=== PATIENT | female | born 1985 | race Caucasian/White ===

== ENCOUNTER 2020-03-02 08:33 | Inpatient (IN) ==
[2020-03-02] MEDS ORDERED: 0.9 % SODIUM CHLORIDE 1,000 ML IV ONE ×2 (09:35→12:58)
--- NOTE | 2020-03-02 09:53 | XRay Report ---
INDICATION: Chest Pain TECHNIQUE: AP portable upright chest x-ray COMPARISON: Previous chest x-ray dated 04/25/2018 FINDINGS: Lungs:Lungs are negative. No focal pulmonary parenchymal infiltrate or mass Heart, vascular:No significant cardiomegaly. Pulmonary vascularity is normal. No pulmonary edema or pulmonary congestion Mediastinum, lashawn:No mediastinal widening. No hilar mass Pleura:No pleural fluid. No pleural-based mass or calcification Skeletal:Negative. IMPRESSION: 1. Negative AP chest x-ray 2. No interval change since 04/25/2018 Interpreted and Authenticated by: Rashid Cardoso 03/02/20
[2020-03-02] MEDS ORDERED: ONDANSETRON 4 MG/2 ML VIAL IV ONE (10:12)
--- NOTE | 2020-03-02 10:21 | Emergency Department Note ---
Chest Pain HPI General Chief Complaint: Chest Pain Stated Complaint: Chest, arm, neck pain after drinking water Time Seen by Provider: 03/02/20 09:25 Source: patient Mode of arrival: ambulatory Limitations: no limitations History of Present Illness HPI Narrative: Narrative: This pleasant 34-year-old female comes to the emergency room with onset around 4:30 AM of getting up to drink some water and then it seemed to go down "the wrong tube" and she choked and coughed significantly. She went back to bed and an hour later woke up feeling quite weird and weak with chest discomfort and a sore throat. There is no dysphagia. Her chest discomfort includes pain somewhat between her shoulder blades in her back. She worried about aspiration. Chest pain she rates at 8/10. She does feel little bit short of breath but this was not observed in triage. She is quite thirsty. She did have a diet Pepsi around 6:30 AM. She also smoked before coming in. She denies fevers, chills, sweats, runny nose, nasal congestion, current cough or dysuria or diarrhea. She does feel lightheaded and this has been going on while trying to ambulate or walk. She has had DKA before, is a type I diabetic. She has not had her insulin today. She has not had an A1c for quite a long period of time. Related Data Home Medications Medication Instructions Recorded Confirmed insulin aspart U-100 [Novolog] 100 unit SQ 07/30/17 insulin glargine [Basaglar Kwikpen 100 unit SQ 07/30/17 U-100] Tamiflu 04/25/18 Allergies Allergy/AdvReac Type Severity Reaction Status Date / Time No Known Drug Allergies Allergy Verified 07/30/17 00:29 Review of Systems ROS ROS Narrative: Narrative: Denies fever chills sweats No runny nose or cough or wheezing but feels short of breath No abdominal pain, nausea, vomiting No dysuria No back pain except some between her shoulder blades she associates with above Lightheaded and dizzy with walking. PFS Narrative Patient History Narrative: Narrative: No asthma, DVT, PE, pneumonia Medical/Surgical/Family History All Active Problems (Updated 03/02/20 @ 14:35 by Silver Marquez DO) Cigarette smoker (Acute) History of tubal ligation (Acute) History of diabetes with ketoacidosis (Acute) Diabetes mellitus type 1 (Acute) DKA (diabetic ketoacidoses) (Acute) Chest pain, unspecified (Acute) Elevated WBC count (Acute) Medical History (Updated 03/02/20 @ 14:35 by Silver Marquez DO) Carbuncle and furuncle of buttock (Inactive) Cigarette smoker (Acute) Diabetes mellitus type 1 (Acute) History of diabetes with ketoacidosis (Acute) Influenza (Inactive) Surgical History (Updated 03/02/20 @ 14:35 by Silver Marquez DO) History of tubal ligation (Acute) Social History Smoking Status: Current every day smoker Alcohol Intake Frequency: does not drink Substance Use: does not use Exam Narrative Narrative: Narrative: General Limitations: no limitations General appearance: Present alert, in no apparent distress, malaise (Moderate) and nontoxic Head Head: Present atraumatic and normocephalic Eye Eye: Present normal appearance, PERRL and EOMI ENT ENT: Present normal oropharynx and mucous membranes moist Neck Neck: Present trachea midline; Absent lymphadenopathy and thyromegaly Chest Chest: Present symmetric chest wall rise Respiratory Respiratory: Present normal lung sounds bilaterally; Absent respiratory distress, rales/crackles, wheezes, stridor, accessory muscle use and prolonged expiratory phase Cardiovascular Cardiovascular: Present regular rate and normal rhythm; Absent systolic murmur and diastolic murmur Adbominal Abdominal: Present soft; Absent distention, tenderness, guarding, rebound, rigidity, organomegaly and mass Extremities Extremities: Present normal capillary refill; Absent pedal edema, pretibial edema, calf tenderness and cyanosis Back Back: Absent CVA tenderness (R), CVA tenderness (L) and spinous process tenderness Neurological Neurological: Present alert and oriented X3 Psychiatric Psychiatric: Present normal affect, polite and pleasant; Absent depressed, agitated, anxious and poor eye contact Skin Skin: Present warm (WNL) and dry; Absent cyanosis and pallor Course Vital Signs Vital signs: Vital Signs Temperature 98.1 F 03/02/20 08:37 Pulse Rate 138 H 03/02/20 08:37 Respiratory Rate 18 03/02/20 08:37 Blood Pressure 106/63 03/02/20 08:37 Pulse Oximetry (%) 100 03/02/20 08:37 Temperature 98.1 F 10/23/20 08:37 Pulse Rate 124 H 03/02/20 14:01 Respiratory Rate 20 03/02/20 14:01 Blood Pressure 98/53 03/02/20 14:01 Pulse Oximetry (%) 98 03/02/20 14:01 MDM MDM Narrative Medical decision making narrative: Narrative: 9:25 AM - interviewed and examined. Chest discomfort. Moderate malaise general appearance. With her type I diabetic we will do multiple labs. Chest x-ray. 10:20 AM - chest x-ray quite unremarkable per radiologist report. At 1 point patient was ready to leave, wanting to leave. I reported back to her that there was a significant delay in an important lab and that she needed to stay that I could not agree with her leaving until this came back. Labs were quite delayed in coming back. CMP comes back with a significantly elevated anion gap at 28 and a suppressed bicarb. We will do ABG. Patient is agreeable to stay in the hospital with likelihood of DKA and for best outcome and improvement. ABG demonstrates significant metabolic acidosis with a pH of 7.16, PCO2 of 19, base excess -19.8 and a bicarb low at 6.8. This is on room air. 2:40 PM - spoke with Dr. Pardeep Lipscomb, hospitalist, who will come and see patient and admit this patient. Pending are repeat, recently ordered, POC Chem- 8, magnesium, lactic acid/RT. insulin drip requested. At 0.1 units/kg/h would be a little over 6 units. Patient's blood sugars have already come down quite significantly with 5 units given twice over several hours. We will start her at 4 units/kg/h. 2:45 PM - Dr. Meng is here to see patient. Lab Data Result diagrams: 03/02/20 09:51 03/02/20 09:51 Labs: Lab Results 03/02/20 03/02/20 03/02/20 Range/Units 09:51 09:51 09:51 WBC 14.1 H (4.5-11.0) K/mcL RBC 5.14 (4.00-5.20) M/mcL Hgb 14.8 (12.0-15.0) g/dL Hct 45.6 (36.0-48.0) % MCV 88.7 (80.0-100.0) fL MCH 28.8 (26.0-34.0) pg MCHC 32.5 (31.0-36.0) g/dL RDW 12.6 (11.5-14.5) % Plt Count 319 (140-440) K/mcL MPV 12.3 H (7.4-10.4) fL Neut % (Auto) 89.2 H (38.0-78.0) % Lymph % (Auto) 7.3 L (15.0-49.0) % [place] % (Auto) 2.6 (1.0-12.0) % Eos % (Auto) 0.1 (0.0-7.0) % Baso % (Auto) 0.8 (0.0-2.0) % Lymph # (Auto) 1.03 L (1.50-4.80) K/mcL [place] # (Auto) 0.37 (0.10-0.90) K/mcL Eos # (Auto) 0.02 (0.00-0.70) K/mcL Baso # (Auto) 0.11 (0.00-0.20) K/mcL Absolute Neutrophils 12.58 H (1.80-8.00) K/mcL Sodium 126 L (133-145) mmol/L Potassium 4.9 (3.3-5.1) mmol/L Chloride 86 L (96-108) mmol/L Carbon Dioxide 12 L (22-30) mmol/L Anion Gap 28.0 H (8.0-16.0) BUN 19 (6-20) mg/dL Creatinine 0.9 (0.6-1.1) mg/dL GFR Calculation 82 Glucose 563 H* (70-105) mg/dL Calcium 10.2 (8.6-10.4) mg/dL Total Bilirubin 0.6 (0.1-1.0) mg/dL AST 14 (<32) U/L ALT 10 (<40) U/L Alkaline Phosphatase 104 (39-117) U/L Troponin T < 0.01 (<0.03) ng/mL Total Protein 8.2 (5.9-8.4) gm/dL Albumin 4.5 (3.2-5.2) gm/dL Globulin 3.7 (2.2-3.7) gm/dL Albumin/Globulin Ratio 1.2 (1.0-2.3) Lipase 16 (7-60) U/L Discharge Plan Patient/Caregiver Discharge Instructions Pt seen by SENIOR MAINTENANCE TECHNICIAN/PA only: No Clinical Impression: DKA (diabetic ketoacidoses) Qualifiers: Diabetes mellitus type: type 1 Diabetes mellitus complication detail: without coma Qualified Code(s): E10.10 - Type 1 diabetes mellitus with ketoacidosis without coma Chest pain, unspecified Qualifiers: Chest pain type: other chest pain Qualified Code(s): R07.89 - Other chest pain Elevated WBC count Qualifiers: Leukocytosis type: unspecified Qualified Code(s): D72.829 - Elevated white blood cell count, unspecified Patient Disposition: Xfer As Inpt ([facility]) Follow up with: Gracia Rivera ARNP [Primary Care Provider] - Prescriptions: No Action insulin aspart U-100 [Novolog U-100 Insulin aspart] 100 UNIT/ML Vial 100 unit SQ RF: 0 insulin glargine [Basaglar KwikPen U-100 Insulin] 100 UNIT/ML Insuln.Pen 100 unit SQ RF: 0 Tamiflu RF: 0
[2020-03-02 11:22] LABS: Basophils # (Auto) 0.11 K/mcL (0.00-0.20); Basophils % (Auto) 0.8 % (0.0-2.0); Eosinophils # (Auto) 0.02 K/mcL (0.00-0.70); Eosinophils % (Auto) 0.1 % (0.0-7.0); Hematocrit 45.6 % (36.0-48.0); Hemoglobin 14.8 g/dL (12.0-15.0); Lymphocytes # (Auto) 1.03 K/mcL (1.50-4.80); Lymphocytes % (Auto) 7.3 % (15.0-49.0); Mean Cell Volume 88.7 fL (80.0-100.0); Mean Corpuscular HGB Conc 32.5 g/dL (31.0-36.0); Mean Platelet Volume 12.3 fL (7.4-10.4); Monocytes # (Auto) 0.37 K/mcL (0.10-0.90); Monocytes % (Auto) 2.6 % (1.0-12.0); Neutrophils % (Auto) 89.2 % (38.0-78.0); Platelet Count 319 K/mcL (140-440); RBC 5.14 M/mcL (4.00-5.20); Red Cell Distribution Width 12.6 % (11.5-14.5); WBC 14.1 K/mcL (4.5-11.0)
[2020-03-02] MEDS ORDERED: INSULIN REGULAR, HUMAN 1 UNIT/0.01 ML UNIT IV ONE ×2 (11:44→12:58)
[2020-03-02 12:47] LABS: ALT/SGPT 10 U/L (<40); AST/SGOT 14 U/L (<32); Albumin 4.5 gm/dL (3.2-5.2); Albumin/Globulin Ratio 1.2 (1.0-2.3); Alkaline Phosphatase 104 U/L (39-117); Bilirubin,Total 0.6 mg/dL (0.1-1.0); Blood Urea Nitrogen 19 mg/dL (6-20); Calcium 10.2 mg/dL (8.6-10.4); Carbon Dioxide 12 mmol/L (22-30); Chloride 86 mmol/L (96-108); Globulin 3.7 gm/dL (2.2-3.7); Glomerular Filtration Rate 82; Glucose 563 mg/dL (70-105)
[2020-03-02] MEDS ORDERED: INSULIN REGULAR, HUMAN 50 UNIT in 0.9 % SODIUM CHLORIDE 99.5 ML IV SCH ×2 (14:45→16:00)
[2020-03-02 14:54] LABS: POC Blood Urea Nitrogen 19 mg/dL (6-20); POC CO2 10 mmol/L (22-30); POC Calcium, Ionized 1.21 mmEq/L (1.16-1.32); POC Chloride 103 mEq/L (96-108); POC Creatinine 0.3 mg/dL (0.6-1.2); POC Glucose, Random 319 mg/dL (70-105); POC Hematocrit 45 % (36-48); POC Potassium 4.1 mEql/L (3.3-5.1); POC Sodium 132 mEq/L (133-145)
--- NOTE | 2020-03-02 14:58 | Internal Med History&Physical ---
HPI History of Present Illness Patient information: Note initiated : 03/02/20 at 2:52 pm Service Date, if different from initiated Date: [] Patient: Taisha hCicas 34 y/o F admitted on for Chest, arm, neck pain after drinking water. Chief Complaint: [] History of present illness: Ms. Chicas is a 34 year old F Presents the ED feeling ill with malaise weakness that she had some generalized throat chest neck achiness. She thought she aspirated some fluid on her windpipe. But she did come in on room air unlabored breathing. States that her chest throat back pain improved after the IV fluids and insulin given in the ED. Chest x-ray was unremarkable and work-up in the ED revealed diabetic ketoacidosis. Patient started on insulin drip. Patient did have some nausea but no vomiting. Does admit to missing some of her long-acting insulin usually in the mornings and she does have some dietary indiscretions as well. Review of Systems: Pertinent positives above. Denies headache/fever/chills/vomiting/abdominal pain/cough/dyspnea/diarrhea. Remaining 10 point review of system reviewed negative PFSH PFSH All Active Problems (Updated 03/02/20 @ 14:35 by Silver Marquez DO) Cigarette smoker (Acute) History of tubal ligation (Acute) History of diabetes with ketoacidosis (Acute) Diabetes mellitus type 1 (Acute) DKA (diabetic ketoacidoses) (Acute) Chest pain, unspecified (Acute) Elevated WBC count (Acute) Medical History (Updated 03/02/20 @ 14:35 by Silver Marquez DO) Carbuncle and furuncle of buttock (Inactive) Cigarette smoker (Acute) Diabetes mellitus type 1 (Acute) History of diabetes with ketoacidosis (Acute) Influenza (Inactive) Surgical History (Updated 03/02/20 @ 14:35 by Silver Marquez DO) History of tubal ligation (Acute) Social History (Updated 03/02/20 @ 14:55 by Pardeep Meng DO) smoking status: Current every day smoker alcohol intake frequency: does not drink substance use type: does not use additional history: Family history: Father had CAD and mother was adopted with unknown history Past surgical history: Tubal ligation MEDS/ALLERGIES Home Medications and Allergies Home Medications Medication Instructions Recorded Confirmed Type insulin aspart U-100 [Novolog] 100 unit SQ 07/30/17 History insulin glargine [Basaglar Kwikpen 100 unit SQ 07/30/17 History U-100] Tamiflu 04/25/18 History Allergies Allergy/AdvReac Type Severity Reaction Status Date / Time No Known Drug Allergies Allergy Verified 07/30/17 00:29 EXAM Constitutional Vitals: Temp Pulse Resp BP Pulse Ox 98.1 F 124 H 20 98/53 98 03/02/20 08:37 03/02/20 14:01 03/02/20 14:01 03/02/20 14:01 03/02/20 14:01 Exam: General: Alert, Awake, No acute Distress Eyes/N/T: EOMI, PERRL, dry MM Head/Neck: neck supple, normocephalic atraumatic CV: Tachycardia but regular, No murmurs, normal s1/s2 Pulm: Clear b/l, no wheezing/rhonchi/rales Abd: soft, nontender, +BS x4 Ext: no clubbing/cyanosis/edema Neuro: Alert, no focal deficits, moves all extremities, CN 2-12 grossly intact, symmetrical strength b/l upper/lower, sensations intact b/l upper/lower Skin: warm/dry DATA Data Completed and Pending Labs: Labs from last 24 hours 03/02/20 03/02/20 03/02/20 14:45 14:41 09:51 WBC RBC Hgb Hct POC Hct Pending MCV MCH MCHC RDW Plt Count MPV Neut % (Auto) Lymph % (Auto) [place] % (Auto) Eos % (Auto) Baso % (Auto) Lymph # (Auto) [place] # (Auto) Eos # (Auto) Baso # (Auto) Absolute Neutrophils POC Sodium Pending Sodium POC Potassium Pending Potassium POC Chloride Pending Chloride Carbon Dioxide POC Total CO2 Pending Anion Gap POC BUN Pending BUN Creatinine POC Creatinine Pending GFR Calculation Glucose POC Glucose Pending Calcium POC WB Ioniz Calcium Pending Magnesium Pending Total Bilirubin AST ALT Alkaline Phosphatase Troponin T < 0.01 Total Protein Albumin Globulin Albumin/Globulin Ratio Lipase Beta-Hydroxybutyrate Pending 03/02/20 03/02/20 09:51 09:51 WBC 14.1 H RBC 5.14 Hgb 14.8 Hct 45.6 POC Hct MCV 88.7 MCH 28.8 MCHC 32.5 RDW 12.6 Plt Count 319 MPV 12.3 H Neut % (Auto) 89.2 H Lymph % (Auto) 7.3 L [place] % (Auto) 2.6 Eos % (Auto) 0.1 Baso % (Auto) 0.8 Lymph # (Auto) 1.03 L [place] # (Auto) 0.37 Eos # (Auto) 0.02 Baso # (Auto) 0.11 Absolute Neutrophils 12.58 H POC Sodium Sodium 126 L POC Potassium Potassium 4.9 POC Chloride Chloride 86 L Carbon Dioxide 12 L POC Total CO2 Anion Gap 28.0 H POC BUN BUN 19 Creatinine 0.9 POC Creatinine GFR Calculation 82 Glucose 563 H* POC Glucose Calcium 10.2 POC WB Ioniz Calcium Magnesium Total Bilirubin 0.6 AST 14 ALT 10 Alkaline Phosphatase 104 Troponin T Total Protein 8.2 Albumin 4.5 Globulin 3.7 Albumin/Globulin Ratio 1.2 Lipase 16 Beta-Hydroxybutyrate A/P Narrative A/P Narrative: A: *DKA: 2/2 missed insulin dosing and dietary indiscretion *AG Met Acidosis: 2/2 above *Depression: *Tobacco abuse: * P: -Insulin drip -IV fluid -Electrolyte drinks/replacement -restart home insulin and titrate -a1c, uds, bhb -Smoking cessation counseling -ppx: Lovenox Time Spent With Patient Time: Total time spent is greater than 50% in coordination of care (as documented) at patient's floor/unit and/or counseling patient:
[2020-03-02 15:18] LABS: Amphetamine Screen,Urine None detected; Barbiturate Screen,Urine None detected; Benzodiazepines Screen,Urine None detected; Cannabinoid Screen,Urine None detected; Cocaine Screen,Urine None detected; Opiate Screen,Urine None detected; Oxycodone, Urine Screen None detected; Phencyclidine Screen,Urine None detected
[2020-03-02] MEDS ORDERED: ONDANSETRON 4 MG/2 ML VIAL IV PRN (16:00)
[2020-03-02] MEDS ORDERED: IPRATROPIUM/ALBUTEROL 3 ML AMPUL.NEB NEB PRN (16:00)
[2020-03-02] MEDS ORDERED: POTASSIUM CHLORIDE 40 MEQ in DEXTROSE 5% IN WATER 500 ML IV PRN (16:00)
[2020-03-02] MEDS ORDERED: SENNOSIDES 1 TABLET PO PRN (16:00)
[2020-03-02] MEDS ORDERED: MAGNESIUM SULFATE 2 GM/50 ML BAG IV PRN (16:00)
[2020-03-02] MEDS ORDERED: POTASSIUM CHLORIDE 20 MEQ TABLET PO PRN ×2 (16:00)
[2020-03-02] MEDS: 0.9 % SODIUM CHLORIDE 1,000 ML IV SCH ×2 (16:10→23:04)
[2020-03-02] MEDS: NICOTINE 14 MG PATCH TOPICAL SCH (16:13)
[2020-03-02 17:02] LABS: Appearance,Urine CLEAR (Clear); Bilirubin,Urine Negative (Negative); Color,Urine STRAW; Culture Indicated,Urine No; Glucose,Urine (UA) >=500 mg/dL (Negative); Ketones,Urine 80 mg/dL (Negative); Leukocyte Esterase,Urine Negative /ug (Negative); Mucus,Urine FEW /hpf; Nitrate,Urine Negative (Negative); Protein,Urine Negative (Negative); Specific Gravity,Urine 1.024 (1.000-1.035); Urine Blood 0.03 mg/dL (Negative); Urine RBC 1 /hpf (0-1); Urine Squamous Epithelial Cell 0 /hpf (0-4); Urine WBC < 1 /hpf (0-4); Urobilinogen,Urine Negative
[2020-03-02 17:31] LABS: Hemoglobin A1C 13.2 % Hgb (4.0-6.0)
[2020-03-02] MEDS: ACETAMINOPHEN 325 MG TABLET PO PRN (17:33)
[2020-03-02] MEDS ORDERED: ACETAMINOPHEN 325 MG TABLET PO ONE (17:40)
[2020-03-02] MEDS ORDERED: INSULIN REGULAR, HUMAN 1 UNIT/0.01 ML UNIT ONE ×2 (19:28→20:20)
[2020-03-02] MEDS: DOCUSATE SODIUM 100 MG CAPSULE PO SCH (21:04)
[2020-03-02] MEDS: 0.9 % SODIUM CHLORIDE 10 ML SYRINGE IV SCH (22:03)
[2020-03-02] MEDS: DEXTROSE 5%-NS 1,000 ML IV SCH (23:06)
[2020-03-03] MEDS ORDERED: DEXTROSE 50% 50 ML VIAL IV ONE (01:08)
[2020-03-03] MEDS: 0.9 % SODIUM CHLORIDE 10 ML SYRINGE IV SCH ×3 (05:04→21:10)
[2020-03-03] MEDS: 0.9 % SODIUM CHLORIDE 1,000 ML IV SCH ×3 (05:25→12:15)
[2020-03-03 05:28] LABS: Basophils # (Auto) 0.08 K/mcL (0.00-0.20); Basophils % (Auto) 0.9 % (0.0-2.0); Eosinophils # (Auto) 0.21 K/mcL (0.00-0.70); Eosinophils % (Auto) 2.3 % (0.0-7.0); Hematocrit 38.2 % (36.0-48.0); Hemoglobin 12.7 g/dL (12.0-15.0); Lymphocytes # (Auto) 2.87 K/mcL (1.50-4.80); Lymphocytes % (Auto) 31.3 % (15.0-49.0); Mean Cell Volume 86.8 fL (80.0-100.0); Mean Corpuscular HGB Conc 33.2 g/dL (31.0-36.0); Mean Platelet Volume 11.2 fL (7.4-10.4); Monocytes # (Auto) 0.81 K/mcL (0.10-0.90); Monocytes % (Auto) 8.8 % (1.0-12.0); Neutrophils % (Auto) 56.7 % (38.0-78.0); Platelet Count 295 K/mcL (140-440); Red Cell Distribution Width 12.8 % (11.5-14.5); WBC 9.2 K/mcL (4.5-11.0)
[2020-03-03] MEDS: DEXTROSE 5%-NS 1,000 ML IV SCH (05:45)
[2020-03-03 05:59] LABS: ALT/SGPT 7 U/L (<40); AST/SGOT 12 U/L (<32); Albumin 3.2 gm/dL (3.2-5.2); Albumin/Globulin Ratio 1.1 (1.0-2.3); Alkaline Phosphatase 75 U/L (39-117); Bilirubin,Direct < 0.2 mg/dL (<0.3); Bilirubin,Total 0.4 mg/dL (0.1-1.0); Blood Urea Nitrogen 13 mg/dL (6-20); Calcium 7.9 mg/dL (8.6-10.4); Carbon Dioxide 17 mmol/L (22-30); Chloride 105 mmol/L (96-108); Globulin 2.8 gm/dL (2.2-3.7); Glomerular Filtration Rate 125; Glucose 110 mg/dL (70-105); Lactate Dehydrogenase 140 U/L (135-225); Phosphorous 2.5 mg/dL (2.5-4.5); Triglycerides 89 mg/dL (<150)
[2020-03-03] MEDS: ACETAMINOPHEN 325 MG TABLET PO PRN (08:20)
[2020-03-03] MEDS ORDERED: DEXTROSE 50% 50 ML VIAL IV PRN ×2 (08:23→12:40)
[2020-03-03] MEDS ORDERED: DEXTROSE 31 GM ORAL.SUSP PO PRN ×2 (08:23→12:40)
--- NOTE | 2020-03-03 08:23 | Internal Med Progress Note ---
SUBJECTIVE Subjective Patient information: Note initiated : 03/03/20 at 8:21 am Service Date, if different from initiated Date: [] Patient: Taisha Chicas 34 y/o F admitted on 03/02/20 for Chest, arm, neck pain after drinking water. Chief Complaint: [] Interval history: History of present illness: Ms. Chicas is a 34 year old F Presents the ED feeling ill with malaise weakness that she had some generalized throat chest neck achiness. She thought she aspirated some fluid on her windpipe. But she did come in on room air unlabored breathing. States that her chest throat back pain improved after the IV fluids and insulin given in the ED. Chest x-ray was unremarkable and work-up in the ED revealed diabetic ketoacidosis. Patient started on insulin drip. Patient did have some nausea but no vomiting. Does admit to missing some of her long-acting insulin usually in the mornings and she does have some dietary indiscretions as well. 03/03 Feeling better today. Transitioning from the drip to subcu. Electrolytes and metabolic status normalizing. Review of Systems: denies headache/fever/chills/nausea/vomiting/chest or abdominal p ain/cough/dyspnea/diarrhea. Otherwise see above. Constitutional Vitals: Vital Signs Temp Pulse Resp BP Pulse Ox 98.1 F 112 H 15 96/58 100 03/02/20 16:12 03/02/20 16:12 03/03/20 04:18 03/03/20 04:01 03/03/20 04:18 Period Temp Pulse Resp BP Sys/Hill Pulse Ox Last 24 Hr 98.1 F-99.3 F 112-138 8-29 88-124/39-72 96-100 Intake and Output 03/02/20 03/03/20 03/03/20 21:59 05:59 13:59 Intake Total 1033 2075 267 Output Total 750 500 Balance 283 1575 267 Weight 66.6 kg Intake & Output: Intake & Output 03/02/20 03/03/20 03/03/20 21:59 05:59 13:59 Intake Total 1033 2075 267 Output Total 750 500 Balance 283 1575 267 Weight 66.6 kg Intake: IV 1033 5 267 Sodium Chloride 0.9% 1,000 ml @ 1000 1000 150 mls/hr IV .Q6H40M [facility] Rx#: [id number] Dextrose 5%-Ns IV Solution 1, 1000 267 000 ml @ 150 mls/hr IV .Q6H40M [facility] Rx#:[id number] HumuLIN R 50 UNIT In Sodium 33 75 0 Chloride 0.9% 99.5 ml @ 4 UNIT/ HR 8 mls/hr IV DUR [facility] Rx#: [id number] Output: Void Amount 750 500 Other: Urine Appearance Clear Clear Urine Color Blood Tinged Blood Tinged Urine Odor Normal Normal Exam: General: Alert, Awake, No acute Distress Eyes/N/T: EOMI, Head/Neck: neck supple, CV: mildly Tachycardia but regular, No murmurs, Pulm: Clear b/l, no wheezing/rhonchi/rales Abd: soft, nontender, +BS x4 Ext: no clubbing/cyanosis/edema Neuro: Alert, no focal deficits, moves all extremities, Skin: warm/dry OBJ DATA Labs CBC & Chem 7: 03/03/20 04:28 03/03/20 04:28 Labs: Abnormal Lab Results 03/03/20 03/03/20 03/03/20 04:28 04:28 04:28 WBC MPV 11.2 H Neut % (Auto) Lymph % (Auto) Lymph # (Auto) Absolute Neutrophils POC Sodium Sodium Chloride Carbon Dioxide 17 L POC Total CO2 Anion Gap Creatinine 0.5 L POC Creatinine Glucose 110 H POC Glucose Hemoglobin A1c Calcium 7.9 L Beta-Hydroxybutyrate 0.58 H Urine Glucose (UA) Urine Ketones Urine Mucus 03/02/20 03/02/20 03/02/20 16:00 14:45 14:41 WBC MPV Neut % (Auto) Lymph % (Auto) Lymph # (Auto) Absolute Neutrophils POC Sodium 132 L Sodium Chloride Carbon Dioxide POC Total CO2 10 L Anion Gap Creatinine POC Creatinine 0.3 L Glucose POC Glucose 319 H Hemoglobin A1c 13.2 H Calcium Beta-Hydroxybutyrate > 7.53 H Urine Glucose (UA) Urine Ketones Urine Mucus 03/02/20 03/02/20 03/02/20 09:51 09:51 09:40 WBC 14.1 H MPV 12.3 H Neut % (Auto) 89.2 H Lymph % (Auto) 7.3 L Lymph # (Auto) 1.03 L Absolute Neutrophils 12.58 H POC Sodium Sodium 126 L Chloride 86 L Carbon Dioxide 12 L POC Total CO2 Anion Gap 28.0 H Creatinine POC Creatinine Glucose 563 H* POC Glucose Hemoglobin A1c Calcium Beta-Hydroxybutyrate Urine Glucose (UA) >=500 A Urine Ketones 80 A Urine Mucus Few A Meds: Medications Acetaminophen (Tylenol) 650 mg PO Q6HP PRN; Protocol PRN Reason: Per Pain Protocol Albuterol/Ipratropium (Duoneb) 3 ml NEB Q4HP PRN PRN Reason: Shortness Of Breath Diagnostic Test (Pha) (Accu-Chek) 1 each FS Q1 [facility] Last Admin: 03/03/20 08:00 Dose: 1 each Documented by: Docusate Sodium (Colace) 100 mg PO BID [facility] Last Admin: 03/02/20 21:04 Dose: Not Given Documented by: Enoxaparin Sodium (Lovenox) 40 mg SQ DAILY INDER Gabapentin (Neurontin) 300 mg PO TID [facility] Insulin Human Regular 50 unit/ (Sodium Chloride) 100 mls @ 8 mls/hr IV DUR [facility]; Protocol Last Titration: 03/03/20 07:00 Dose: Infused Documented by: Potassium Chloride 40 meq/ (Dextrose) 520 mls @ 130 mls/hr IV UD PRN PRN Reason: Potassium < 3 Magnesium Sulfate (Magnesium Sulfate) 2 gm in 50 mls @ 50 mls/hr IV UD PRN PRN Reason: Magnesium </= 1.6 Sodium Chloride (Sodium Chloride 0.9%) 1,000 mls @ 150 mls/hr IV .Q6H40M [facility] Last Admin: 03/03/20 07:33 Dose: 150 mls/hr Documented by: Dextrose/Sodium Chloride (Dextrose 5%-Ns Iv Solution) 1,000 mls @ 150 mls/hr IV .Q6H40M [facility] Last Infusion: 03/03/20 07:32 Dose: Infused Documented by: Insulin Glargine (Lantus) 25 unit SQ BID [facility] Last Admin: 03/03/20 08:15 Dose: 25 unit Documented by: Nicotine (Nicoderm) 14 mg TOPICAL DAILY@1000 INDER Last Admin: 03/02/20 16:13 Dose: 14 mg Documented by: Nortriptyline HCl (Pamelor) 50 mg PO HS INDER Ondansetron HCl (Zofran) 4 mg IV Q4HP PRN PRN Reason: Nausea And Vomiting Potassium Chloride (Kdur) 40 meq PO UD PRN PRN Reason: Potssium is 3-3.5 Last Admin: 03/03/20 08:16 Dose: 40 meq Documented by: Potassium Chloride (Kdur) 40 meq PO UD PRN PRN Reason: Potassium < 3 Senna (Senokot) 2 tab PO DAILYP PRN PRN Reason: Constipation Sodium Chloride (Saline Flush) 10 ml IV Q8 INDER Last Admin: 03/03/20 05:04 Dose: Not Given Documented by: A/P Narrative A/P Narrative: A: *DKA: 2/2 missed insulin dosing and dietary indiscretion -DM poorly controlled 2/2 above, A1c 13.2 -resolved *AG Met Acidosis: 2/2 above, improved *Depression: *Tobacco abuse: * P: -Insulin drip d/c to sq -titrate home insulin as needed -IV fluid decrease -Electrolyte monitor -Smoking cessation counseling -ppx: Lovenox Time Spent With Patient Time: Total time spent is greater than 50% in coordination of care (as documented) at patient's floor/unit and/or counseling patient: QUALITY VTE Deep Vein Thrombosis/Pulmonary Embolism Present on Admission: No
[2020-03-03] MEDS ORDERED: ENOXAPARIN 40 MG/0.4 ML SYRINGE SQ SCH (09:00)
[2020-03-03] MEDS ORDERED: GABAPENTIN 300 MG CAPSULE PO SCH (09:00)
[2020-03-03] MEDS ORDERED: INSULIN GLARGINE, HUMAN 1 UNIT/0.01 ML SQ SCH ×2 (09:00→21:00)
[2020-03-03] MEDS ORDERED: CALCIUM GLUCONATE 4.65 MEQ in DEXTROSE 5% IN WATER 50 ML IV ONE (09:00)
[2020-03-03] MEDS: DOCUSATE SODIUM 100 MG CAPSULE PO SCH ×2 (09:03→21:09)
[2020-03-03] MEDS: INSULIN LISPRO 1 UNIT/0.01 ML UNIT SQ SCH ×4 (09:11→21:25)
[2020-03-03] MEDS: NICOTINE 14 MG PATCH TOPICAL SCH (10:07)
--- NOTE | 2020-03-03 12:17 | Discharge Summary ---
Discharge Provider Provider Patient information: Note initiated : 03/03/20 at 12:16 pm Service Date, if different from initiated Date: [] Patient: Taisha Chicas 34 y/o F admitted on 03/02/20 for Chest, arm, neck pain after drinking water. Chief Complaint: [] Date of admission: 03/02/20 15:53 Discharge date: 03/04/20 Primary care physician: Gracia Rivera Consults: 03/02/20 Consult to Physician [CONS] Stat Comment: Consulting Provider: Pardeep Meng Reason For Exam: Physician to Consult Discharge Meds Discharge Medications Home Medications gabapentin 300 mg PO TID 03/02/20 [History Confirmed 03/02/20 Last Taken 03/01/20] ibuprofen 800 mg PO BIDP PRN 03/02/20 [History Confirmed 03/02/20 Last Taken Unknown] insulin lispro [Humalog U-100 Insulin] See Protocol SUBCUT BID 03/02/20 [History Confirmed 03/02/20 Last Taken 03/01/20] nortriptyline 50 mg PO QHS 03/02/20 [History Confirmed 03/02/20 Last Taken 03/01/20] Lantus U-100 Insulin 35 unit SUBCUT BID #10 ml 03/04/20 [Rx Last Taken Unknown] sulfamethoxazole-trimethoprim 1 tab PO BID #10 tab 03/04/20 [Rx Last Taken Unknown] COURSE Hospital Course Hospital course: History of present illness: Ms. Chicas is a 34 year old F Presents the ED feeling ill with malaise weakness that she had some generalized throat chest neck achiness. She thought she aspirated some fluid on her windpipe. But she did come in on room air unlabored breathing. States that her chest throat back pain improved after the IV fluids and insulin given in the ED. Chest x-ray was unremarkable and work-up in the ED revealed diabetic ketoacidosis. Patient started on insulin drip. Patient did have some nausea but no vomiting. Does admit to missing some of her long-acting insulin usually in the mornings and she does have some dietary indiscretions as well. 03/03 Feeling better today. Transitioning from the drip to subcu. Electrolytes and metabolic status normalizing. 03/04 doing well, increased home insulin last night. A/P Narrative: A: *DKA: 2/2 missed insulin dosing and dietary indiscretion -DM poorly controlled 2/2 above, A1c 13.2 -resolved *furuncle: bactrim *AG Met Acidosis: 2/2 above, improved *Depression: *Tobacco abuse: Discharge diagnosis: DKA medication and dietary noncompliance Secondary discharge diagnosis: Depression tobacco abuse Time Spent with Patient Time attestation: Total time spent providing and/or coordinating discharge services: Time spent: Greater than 30 minutes EXAM Constitutional Vitals: Temp Pulse Resp BP Pulse Ox 98.4 F 112 H 20 110/76 98 03/03/20 12:00 03/02/20 16:12 03/03/20 12:00 03/03/20 12:00 03/03/20 12:00 Discharge Data Data Completed and Pending Labs on day of discharge: Labs from last 24 hours 03/03/20 03/03/20 03/03/20 04:28 04:28 04:28 WBC 9.2 RBC 4.40 Hgb 12.7 Hct 38.2 POC Hct MCV 86.8 MCH 28.9 MCHC 33.2 RDW 12.8 Plt Count 295 MPV 11.2 H Neut % (Auto) 56.7 Lymph % (Auto) 31.3 [place] % (Auto) 8.8 Eos % (Auto) 2.3 Baso % (Auto) 0.9 Lymph # (Auto) 2.87 [place] # (Auto) 0.81 Eos # (Auto) 0.21 Baso # (Auto) 0.08 Absolute Neutrophils 5.20 POC Sodium Sodium 134 POC Potassium Potassium 3.5 POC Chloride Chloride 105 Carbon Dioxide 17 L POC Total CO2 Anion Gap 12.0 POC BUN BUN 13 Creatinine 0.5 L POC Creatinine GFR Calculation 125 Glucose 110 H POC Glucose Hemoglobin A1c Estim Average Glucose Uric Acid 3.0 Calcium 7.9 L POC WB Ioniz Calcium Phosphorus 2.5 Magnesium 1.8 Total Bilirubin 0.4 Direct Bilirubin < 0.2 GGT 6 AST 12 ALT 7 Alkaline Phosphatase 75 Lactate Dehydrogenase 140 Total Protein 6.0 Albumin 3.2 Globulin 2.8 Albumin/Globulin Ratio 1.1 Triglycerides 89 Beta-Hydroxybutyrate 0.58 H Urine Color Urine Appearance Urine pH Ur Specific [place] Urine Protein Urine Glucose (UA) Urine Ketones Urine Occult Blood Urine Nitrate Urine Bilirubin Urine Urobilinogen Ur Leukocyte Esterase Urine RBC Urine WBC Ur Squamous Epith Cells Urine Bacteria Urine Mucus Ur Culture Indicated? Urine HCG, Qual Urine Opiates Screen Ur Opiates Confirm Ur Oxycodone Screen Urine Methadone Screen Ur Methadone Confirm Ur Barbiturates Screen Ur Barbiturate Confirm Ur Phencyclidine Scrn Urine PCP Confirm Ur Amphetamines Screen U Amphetamines Confirm U Benzodiazepines Scrn U Benzodiazepine Confm Urine Cocaine Screen Urine Cocaine Confirm U Cannabinoids Confirm U Marijuana (THC) Screen 03/02/20 03/02/20 03/02/20 16:00 14:45 14:45 WBC RBC Hgb Hct POC Hct 45 MCV MCH MCHC RDW Plt Count MPV Neut % (Auto) Lymph % (Auto) [place] % (Auto) Eos % (Auto) Baso % (Auto) Lymph # (Auto) [place] # (Auto) Eos # (Auto) Baso # (Auto) Absolute Neutrophils POC Sodium 132 L Sodium POC Potassium 4.1 Potassium POC Chloride 103 Chloride Carbon Dioxide POC Total CO2 10 L Anion Gap POC BUN 19 BUN Creatinine POC Creatinine 0.3 L GFR Calculation Glucose POC Glucose 319 H Hemoglobin A1c 13.2 H Estim Average Glucose 332 Uric Acid Calcium POC WB Ioniz Calcium 1.21 Phosphorus 4.4 Magnesium 1.8 Total Bilirubin Direct Bilirubin GGT AST ALT Alkaline Phosphatase Lactate Dehydrogenase Total Protein Albumin Globulin Albumin/Globulin Ratio Triglycerides Beta-Hydroxybutyrate Urine Color Urine Appearance Urine pH Ur Specific [place] Urine Protein Urine Glucose (UA) Urine Ketones Urine Occult Blood Urine Nitrate Urine Bilirubin Urine Urobilinogen Ur Leukocyte Esterase Urine RBC Urine WBC Ur Squamous Epith Cells Urine Bacteria Urine Mucus Ur Culture Indicated? Urine HCG, Qual Urine Opiates Screen Ur Opiates Confirm Ur Oxycodone Screen Urine Methadone Screen Ur Methadone Confirm Ur Barbiturates Screen Ur Barbiturate Confirm Ur Phencyclidine Scrn Urine PCP Confirm Ur Amphetamines Screen U Amphetamines Confirm U Benzodiazepines Scrn U Benzodiazepine Confm Urine Cocaine Screen Urine Cocaine Confirm U Cannabinoids Confirm U Marijuana (THC) Screen 03/02/20 03/02/20 03/02/20 14:41 09:51 09:40 WBC RBC Hgb Hct POC Hct MCV MCH MCHC RDW Plt Count MPV Neut % (Auto) Lymph % (Auto) [place] % (Auto) Eos % (Auto) Baso % (Auto) Lymph # (Auto) [place] # (Auto) Eos # (Auto) Baso # (Auto) Absolute Neutrophils POC Sodium Sodium 126 L POC Potassium Potassium 4.9 POC Chloride Chloride 86 L Carbon Dioxide 12 L POC Total CO2 Anion Gap 28.0 H POC BUN BUN 19 Creatinine 0.9 POC Creatinine GFR Calculation 82 Glucose 563 H* POC Glucose Hemoglobin A1c Estim Average Glucose Uric Acid Calcium 10.2 POC WB Ioniz Calcium Phosphorus Magnesium Total Bilirubin 0.6 Direct Bilirubin GGT AST 14 ALT 10 Alkaline Phosphatase 104 Lactate Dehydrogenase Total Protein 8.2 Albumin 4.5 Globulin 3.7 Albumin/Globulin Ratio 1.2 Triglycerides Beta-Hydroxybutyrate > 7.53 H Urine Color Straw Urine Appearance Clear Urine pH 5.0 Ur Specific [place] 1.024 Urine Protein Negative Urine Glucose (UA) >=500 A Urine Ketones 80 A Urine Occult Blood 0.03 Urine Nitrate Negative Urine Bilirubin Negative Urine Urobilinogen Negative Ur Leukocyte Esterase Negative Urine RBC 1 Urine WBC < 1 Ur Squamous Epith Cells 0 Urine Bacteria None Urine Mucus Few A Ur Culture Indicated? No Urine HCG, Qual Urine Opiates Screen Ur Opiates Confirm Ur Oxycodone Screen Urine Methadone Screen Ur Methadone Confirm Ur Barbiturates Screen Ur Barbiturate Confirm Ur Phencyclidine Scrn Urine PCP Confirm Ur Amphetamines Screen U Amphetamines Confirm U Benzodiazepines Scrn U Benzodiazepine Confm Urine Cocaine Screen Urine Cocaine Confirm U Cannabinoids Confirm U Marijuana (THC) Screen 03/02/20 03/02/20 09:40 09:40 WBC RBC Hgb Hct POC Hct MCV MCH MCHC RDW Plt Count MPV Neut % (Auto) Lymph % (Auto) [place] % (Auto) Eos % (Auto) Baso % (Auto) Lymph # (Auto) [place] # (Auto) Eos # (Auto) Baso # (Auto) Absolute Neutrophils POC Sodium Sodium POC Potassium Potassium POC Chloride Chloride Carbon Dioxide POC Total CO2 Anion Gap POC BUN BUN Creatinine POC Creatinine GFR Calculation Glucose POC Glucose Hemoglobin A1c Estim Average Glucose Uric Acid Calcium POC WB Ioniz Calcium Phosphorus Magnesium Total Bilirubin Direct Bilirubin GGT AST ALT Alkaline Phosphatase Lactate Dehydrogenase Total Protein Albumin Globulin Albumin/Globulin Ratio Triglycerides Beta-Hydroxybutyrate Urine Color Urine Appearance Urine pH Ur Specific [place] Urine Protein Urine Glucose (UA) Urine Ketones Urine Occult Blood Urine Nitrate Urine Bilirubin Urine Urobilinogen Ur Leukocyte Esterase Urine RBC Urine WBC Ur Squamous Epith Cells Urine Bacteria Urine Mucus Ur Culture Indicated? Urine HCG, Qual Negative Urine Opiates Screen None detected Ur Opiates Confirm Not Reportable Ur Oxycodone Screen None detected Urine Methadone Screen None detected Ur Methadone Confirm Not Reportable Ur Barbiturates Screen None detected Ur Barbiturate Confirm Not Reportable Ur Phencyclidine Scrn None detected Urine PCP Confirm Not Reportable Ur Amphetamines Screen None detected U Amphetamines Confirm Not Reportable U Benzodiazepines Scrn None detected U Benzodiazepine Confm Not Reportable Urine Cocaine Screen None detected Urine Cocaine Confirm Not Reportable U Cannabinoids Confirm Not Reportable U Marijuana (THC) Screen None detected Discharge Plan Patient/Caregiver Discharge Instructions Activity: increase activity as tolerated Diet: Consistent Carbohydrate Prescriptions: New sulfamethoxazole-trimethoprim 800-160 mg Tablet 1 tab PO BID Qty: 10 RF: 0 Continued ibuprofen 800 mg Tablet 800 mg PO BIDP PRN (Reason: Pain) RF: 0 gabapentin 300 mg Capsule 300 mg PO TID RF: 0 insulin lispro [Humalog U-100 Insulin] 100 unit/mL Solution See Protocol unit SUBCUT BID RF: 0 nortriptyline 50 mg Capsule 50 mg PO QHS RF: 0 Changed Lantus U-100 Insulin 100 unit/mL Solution 35 unit SUBCUT BID Qty: 10 RF: 0 Follow Up Plan Follow up with: Gracia Rivera ARNP [Primary Care Provider] - Patient Disposition: Home, Self-Care Prognosis: Fair Overall status at discharge: patient is back to baseline Discharge Orders: Discharge Order (Routine); Ordered 03/04/20 [facility]in Th[facility]/Pulmonary Embolism Present on Admission: No
[2020-03-03] MEDS ORDERED: 0.9 % SODIUM CHLORIDE 1,000 ML IV SCH (12:40)
[2020-03-03] MEDS ORDERED: ACETAMINOPHEN 325 MG TABLET PO PRN (12:40)
[2020-03-03] MEDS ORDERED: POTASSIUM CHLORIDE 40 MEQ in DEXTROSE 5% IN WATER 500 ML IV PRN (12:40)
[2020-03-03] MEDS ORDERED: MAGNESIUM SULFATE 2 GM/50 ML BAG IV PRN (12:40)
[2020-03-03] MEDS ORDERED: INSULIN REGULAR, HUMAN 50 UNIT in 0.9 % SODIUM CHLORIDE 99.5 ML IV SCH (12:40)
[2020-03-03] MEDS ORDERED: POTASSIUM CHLORIDE 20 MEQ TABLET PO PRN ×2 (12:40)
[2020-03-03] MEDS ORDERED: SENNOSIDES 1 TABLET PO PRN (12:40)
[2020-03-03] MEDS ORDERED: ONDANSETRON 4 MG/2 ML VIAL IV PRN (12:40)
[2020-03-03] MEDS ORDERED: IPRATROPIUM/ALBUTEROL 3 ML AMPUL.NEB NEB PRN (12:40)
[2020-03-03] MEDS: GABAPENTIN 300 MG CAPSULE PO SCH ×2 (15:00→21:10)
[2020-03-03] MEDS ORDERED: NORTRIPTYLINE 25 MG CAPSULE PO SCH ×2 (21:00)
[2020-03-03] MEDS: SULFAMETHOXAZOLE/TRIMETHOPRIM 1 TABLET PO SCH (21:09)
[2020-03-03] MEDS: INSULIN GLARGINE, HUMAN 1 UNIT/0.01 ML SQ SCH (21:25)
[2020-03-04] MEDS: INSULIN LISPRO 1 UNIT/0.01 ML UNIT SQ SCH ×3 (01:03→13:55)
[2020-03-04] MEDS: 0.9 % SODIUM CHLORIDE 10 ML SYRINGE IV SCH (06:08)
[2020-03-04 08:03] LABS: Blood Urea Nitrogen 7 mg/dL (6-20); Carbon Dioxide 25 mmol/L (22-30); Chloride 106 mmol/L (96-108); Glomerular Filtration Rate 134; Glucose 96 mg/dL (70-105)
[2020-03-04] MEDS ORDERED: POTASSIUM CHLORIDE 20 MEQ TABLET PO ONE (08:31)
[2020-03-04] MEDS ORDERED: ENOXAPARIN 40 MG/0.4 ML SYRINGE SQ SCH (09:00)
[2020-03-04] MEDS: SULFAMETHOXAZOLE/TRIMETHOPRIM 1 TABLET PO SCH (09:41)
[2020-03-04] MEDS: DOCUSATE SODIUM 100 MG CAPSULE PO SCH (09:41)
[2020-03-04] MEDS: INSULIN GLARGINE, HUMAN 1 UNIT/0.01 ML SQ SCH (09:42)
[2020-03-04] MEDS: GABAPENTIN 300 MG CAPSULE PO SCH (09:42)
[2020-03-04] MEDS ORDERED: NICOTINE 14 MG PATCH TOPICAL SCH (10:00)
[2020-03-04] MEDS ORDERED: FLU VACC QS2020-21(6MOS UP)/PF 60 MCG/0.5 ML SYRINGE IM ONE ×2 (10:00→13:45)
== END 2020-03-04 13:45 | disposition home or self-care (01) | DRG 639 ==
LOC: ED 08:33 → ICU 15:53 → MEDSUR 03-03 14:00
PROVIDERS: ADMIT Internal Medicine; ATTEND Internal Medicine